=== PATIENT | female | born 1955 | race African-American/Black ===

== ENCOUNTER 2016-06-05 21:24 | Inpatient (IN) | payer BC ==
--- NOTE | ~2016-06-05 | CN ---
Consultation Report [address] [place]. [address] NAME: REY ROSEN : 57 STATUS : ADM IN [facility]#: [id number] AGE: 61 ADM/REG DATE : 06/06/16 MR#: [id number] REPORT SERV DATE: 06/10/16 DICTATED BY: JEFF MULLINS III DATE: 06/10/16 REPORT STATUS : Draft TRANSCRIBED BY: MODL DATE: 06/10/16 DATE OF CONSULTATION: 06/09/2016 REASON FOR CONSULT: 1. Retroperitoneal mass. 2. Recommendation regarding surgical management. HISTORY OF PRESENT ILLNESS: I am asked to see this 61-year-old female in the hospital today for the above reasons. The patient was admitted to the hospital emergently on 06/05/2016 with evidence for pulmonary embolus. The patient complains of a one-week history of chest pain and right flank pain. She describes right back pain, right flank pain, and right upper quadrant abdominal pain. This has been associated with dyspnea. The patient presented to the emergency room and a CT scan of the chest was performed showing evidence for a left pulmonary embolus. However, right retroperitoneal mass was also identified. The patient has no similar symptoms. She has had a low-grade fever. She was tachycardic on presentation to the emergency room. PAST MEDICAL HISTORY: 1. Hypertension. 2. Non-insulin diabetes mellitus. 3. Fatty liver disease. 4. Obesity. MEDICATIONS: 1. Tylenol. 2. Cartia. 3. Insulin. 4. Starlix. 5. Benicar. 6. Januvia. PAST SURGICAL HISTORY: 1. section. 2. Hysterectomy. 3. Laparoscopic cholecystectomy. FAMILY HISTORY: Positive for diabetes, heart disease, and cerebrovascular accident. SOCIAL HISTORY: No history of tobacco or alcohol use. Consultation Report [address] [place]. [address] NAME: REY ROSEN : 57 STATUS : ADM IN [facility]#: [id number] AGE: 61 ADM/REG DATE : 06/06/16 MR#: [id number] REPORT SERV DATE: 06/10/16 DICTATED BY: JEFF MULLINS III DATE: 06/10/16 REPORT STATUS : Draft TRANSCRIBED BY: MODL DATE: 06/10/16 PHYSICAL EXAMINATION: GENERAL: This is a pleasant, somewhat obese female, in no acute distress. She is alert and oriented x3. VITAL SIGNS: Temperature 97.4, blood pressure 109/64, pulse 92. HEENT: Unremarkable. Cranial nerves 2 through 12 were normal. LUNGS: Clear. She has decreased breath sounds at the base of the right lung. CARDIAC: Unremarkable. ABDOMEN: Soft and nontender. EXTREMITIES: Unremarkable. LABORATORY DATA: CT scan of the abdomen and pelvis which I reviewed shows a poorly defined right upper quadrant retroperitoneal mass located posteriorly. This is not a discrete mass. This is associated with a right pleural effusion. Doppler venous ultrasound of the lower extremities is normal. Electrolytes are unremarkable. Glucose is 76. Liver enzymes are normal. White blood cell count 6.7 and hematocrit 30. ASSESSMENT: 1. A 61-year-old female with right upper posterior retroperitoneal mass, unclear etiology. 2. Right pleural effusion, likely related to right upper posterior retroperitoneal mass. 3. Left pulmonary embolus. 4. Diabetes mellitus. 5. Obesity. 6. Hypertension. PLAN: The patient has undergone CT-directed biopsy of this right retroperitoneal mass and pathology is pending. We will await the pathology report and results before making further recommendations. This process appears to be related to the large right pleural effusion which has been drained. We will follow the patient with you. I have discussed this with the patient. Thank you for this consult. [facility]/TULIO Jeff Mullins III, M.D. Consultation Report [address] [address] NAME: REY ROSEN : 57 STATUS : ADM IN [facility]#: [id number] AGE: 61 ADM/REG DATE : 06/06/16 MR#: [id number] REPORT SERV DATE: 06/10/16 DICTATED BY: JEFF MULLINS III DATE: 06/10/16 REPORT STATUS : Draft TRANSCRIBED BY: TULIO DATE: 06/10/16 / [id number] CC: Rosina Vanessa NP
--- NOTE | ~2016-06-05 | HP ---
History And Physical [address] [place]. [address] NAME: REY ROSEN : 57 STATUS : ADM IN [facility]#: [id number] AGE: 61 ADM/REG DATE : 06/06/16 MR#: [id number] REPORT SERV DATE: 06/06/16 DICTATED BY: TOR SORIANO DATE: 06/06/16 REPORT STATUS : Draft TRANSCRIBED BY: MODL DATE: 06/06/16 DATE OF ADMISSION: 06/05/2016 CHIEF COMPLAINT: Chest pain and shortness of breath. HISTORY OF PRESENT ILLNESS: This is a 61-year-old lady with history of hypertension, diabetes, fatty liver disease, presenting with a shortness of breath and chest pain. The patient reports that the patient started noticing a right-sided flank pain, chest pain, and shortness of breath since about Wednesday. The symptoms started off mild, and the patient did go see her PCP, who decided to monitor her and treat her symptomatically. There were plans to get a chest x-ray, but unfortunately the patient became more symptomatic throughout the week with intractable pain and shortness of breath that she decided to come to the ER for further evaluation and care. In the ER, the patient was found to be febrile to 100.5. The patient was also quite tachycardic with heart rate of 124. Rest of the vital signs was stable, and the patient was maintaining adequate oxygen saturations on room air. Initial lab evaluation was unremarkable. ABG was again unremarkable. CT angiogram of the chest was performed, and it showed a left lower lobe PE along with right-sided moderate pleural effusion and possible infiltrates. Internal Medicine consultation was requested for admission of the patient for further evaluation and care. REVIEW OF SYSTEMS: The patient denies any fevers or chills. Also, 14-point review of systems reviewed is negative other than mentioned above. The patient denied any history of DVTs. Also denied family history of DVTs, smoking, recent surgery or injuries, or travels. MEDICATIONS: 1. Tylenol 1000 mg p.o. b.i.d. p.r.n. 2. Vitamin B12 of 1000 mcg IM or subcu every 30 days. 3. Cartia 240 mg p.o. q.a.m. 4. Vitamin D 50,000 units p.o. every two weeks. 5. NovoLog 70/30 seventy units subcu b.i.d. 6. Starlix 120 mg p.o. three times daily. 7. Benicar hydrochlorothiazide 40/25 one tab p.o. q.p.m. 8. Januvia 100 mg p.o. q.p.m. ALLERGIES: NKDA. PAST MEDICAL HISTORY: 1. Hypertension. 2. Rrc-wphuhas-ytofywnhe diabetes type 2. 3. Fatty liver disease. PAST SURGICAL HISTORY: 1. Hysterectomy. 2. C-sections x3. 3. Cholecystectomy. History And Physical [address] [address] NAME: REY ROSEN : 57 STATUS : ADM IN [facility]#: [id number] AGE: 61 ADM/REG DATE : 06/06/16 MR#: [id number] REPORT SERV DATE: 06/06/16 DICTATED BY: TOR SORIANO DATE: 06/06/16 REPORT STATUS : Draft TRANSCRIBED BY: TULIO DATE: 06/06/16 FAMILY HISTORY: 1. Diabetes. 2. Heart diseases. 3. CVA. 4. Cancers. SOCIAL HISTORY: The patient does not smoke, drink alcohol, or use any illicit drugs. The patient lives at home with her son. PHYSICAL EXAMINATION: VITAL SIGNS: Temperature 100.5, blood pressure 135/68, pulse 124, respiratory rate is 20, saturating 95% on room air. GENERAL: The patient is alert and oriented x3 with no focal neurologic deficits. The patient is awake, does not appear to be in acute distress. She is cooperative. NECK: No JVD. No lymphadenopathy. Normal thyroid. CHEST: No midline sternotomy scar and no tenderness to palpation. LUNGS: Actually fairly clear to auscultation bilaterally with normal respiratory effort on room air. CARDIOVASCULAR: The patient is quite tachycardic. Otherwise, no murmurs, rubs, or gallops; and PMI is nondisplaced. ABDOMEN: Soft, nontender with active bowel sounds and no organomegaly. EXTREMITIES: No edema. Normal distal pulses. No calf tenderness. SKIN: Clean, dry, warm, and intact. LABORATORY DATA: Sodium is 136, potassium 3.7 chloride 101, BUN 27, creatinine 1.53, glucose 281 calcium 9.1. White blood cell count is 10.4, hemoglobin 11.2, platelets 551. INR is 1.2. Lactate is 1.6. ABG; pH is 7.47, PCO2 of 32, PO2 of 66, and oxygen saturation of 94.3% on room air. Urinalysis was negative. Flu panel was negative. CTA of the chest revealed a left lower lobe PEs along with right lower lobe and right middle lobe air bronchogram suggesting possible infiltrates. The patient was also found to have a right-sided moderate pleural effusion. ASSESSMENT: This is a 61-year-old lady with history of hypertension, diabetes, fatty liver disease, who is presenting with left pulmonary embolism and right pneumonia. 1. Left lower lobe pulmonary embolism along with right-sided pneumonia and pleural effusion. The pulmonary embolism itself appears to be unprovoked. 2. Hypertension. 3. Zcr-wkkhfwk-bcumncpcu diabetes type 2. 4. Fatty liver disease. PLAN: The plan is to admit the patient under telemetry monitoring. The patient will be given gentle IV fluid resuscitation. The patient will be started on anticoagulation with IV heparin drip as well as p.o. Coumadin. The patient will decide if she wants to continue Coumadin or switch over to NOAC after giving it some thoughts overnight. The patient will also be treated with Rocephin and Zithromax for the potential pneumonia. I will also History And Physical [address] [address] NAME: REY ROSEN : 57 STATUS : ADM IN [facility]#: [id number] AGE: 61 ADM/REG DATE : 06/06/16 MR#: [id number] REPORT SERV DATE: 06/06/16 DICTATED BY: TOR SORIANO DATE: 06/06/16 REPORT STATUS : Draft TRANSCRIBED BY: MODL DATE: 06/06/16 complete infectious workup. The patient has mild renal insufficiency, and I will follow in's and out's and daily electrolytes and renal function, especially since the patient had a CTA performed despite her renal function. Otherwise, for the rest of stable past medical conditions including hypertension, diabetes, fatty liver disease, I will continue home medications. Standard DVT prophylaxis. The patient is full code at this time. [facility] [place] Tor Soriano MD / [id number]
--- NOTE | ~2016-06-05 | DS ---
Discharge Summary [id number] [place]. [address] NAME: REY ROSEN : 57 STATUS : DIS IN PAT#: [id number] AGE: 61 ADM/REG DATE : 06/06/16 MR#: [id number] REPORT SERV DATE: 06/19/16 DICTATED BY: SADI MURPHY DATE: 06/19/16 REPORT STATUS : Draft TRANSCRIBED BY: MODL DATE: 06/19/16 ADMISSION DATE: 06/06/2016 DISCHARGE DATE: 06/19/2016 DISCHARGE DIAGNOSES: Include: 1. Retroperitoneal abscess. 2. Acute pulmonary embolus. 3. Uncontrolled diabetes type 2 with hemoglobin A1c of 13.1. 4. Right lower lobe pneumonia present on admission, resolving. 5. Right pleural effusion, resolving. 6. Chronic kidney disease, stage III with most recent creatinine 1.19. 7. History of hypertension. 8. History of iron deficiency anemia. DISCHARGE MEDICATIONS: As follows: Augmentin 875 mg p.o. twice a day for one more day; Januvia 100 mg daily; vitamin B12 1000 mcg every 30 days subcu; diltiazem ER 240 mg daily; NovoLog 70/30 mix insulin 70 units subcutaneously twice a day; Benicar hydrochlorothiazide 40/25, but half a tablet daily; Starlix 120 mg p.o. three times a day; vitamin D 83523 units every 14 days; Tylenol 1000 mg twice a day p.r.n.; and Eliquis 10 mg twice a day for seven days and then 5 mg twice a day thereafter, prescription written for six months. HISTORY OF PRESENT ILLNESS: A very pleasant, 61-year-old female presented with chest pain, shortness of breath. Please see the initial H and P of Dr. Tor Soriano as patient admitted to the Hospitalist Service for further evaluation and treatment. Please also see the interim discharge summary of Leah Moreno, nurse practitioner as this discharge summary will further cover the dates of 06/16/2016 until 06/19/2016. CONSULTANTS DURING THIS ADMISSION: Include General Surgery, Dr. Mojica. CONTINUATION OF HOSPITAL COURSE: I began seeing the patient on 06/16/2016 General Surgery, having determined they were not going to perform any surgical intervention during this admission. I had recommended changing her to p.o. antibiotics and simply following up with an outpatient visit, and further CT scan to follow up with this retroperitoneal abscess. The patient's Coumadin was resumed along with heparin drip. INR was 1.1. Blood sugars written review were reasonably controlled as well on her current insulin. The plan initially was to discharge patient home when her INR reached therapeutic range of 2 and continued on heparin drip. She tolerated the transition to p.o. Augmentin well, has been somewhat difficult to anticoagulate as her INR has been stubborn, and despite large doses of Coumadin 10 mg to 12.5 mg and so forth, her INR did not rise so Case Management explored the possibility of a financial feasibility for a newer oral anticoagulant. Prescription was written for Eliquis which the patient agreed upon so she was able to be discharged home on 06/19/2016 with a plan to follow up with her primary care, in approximately three weeks. She will follow up with Dr. Mojica in two weeks, and her heparin drip was discontinued as she started on her Eliquis therapy receiving her first dose here in the hospital. The patient was in agreement with this plan going forward. Questions were answered at bedside in full, and please note greater than 30 minutes was spent on this discharge for medication Discharge Summary [address] [place]. [address] NAME: REY ROSEN : 57 STATUS : DIS IN [facility]#: [id number] AGE: 61 ADM/REG DATE : 06/06/16 MR#: [id number] REPORT SERV DATE: 06/19/16 DICTATED BY: SADI MURPHY DATE: 06/19/16 REPORT STATUS : Draft TRANSCRIBED BY: MODL DATE: 06/19/16 teaching, followup planning, and further disposition. [facility] [place] Sadi Murphy NP / [id number] CC: MD Janette Garcia II
--- NOTE | ~2016-06-05 | IDS ---
Interim Discharge Summary [facility] [address] [place]. [address] NAME: REY ROSEN : 57 STATUS : ADM IN [facility]#: [id number] AGE: 61 ADM/REG DATE : 06/06/16 MR#: [id number] REPORT SERV DATE: 06/14/16 DICTATED BY: DATE: REPORT STATUS : Draft TRANSCRIBED BY: MODL DATE: 06/14/16 ADMISSION DATE: 06/06/2016 DISCHARGE DATE: DIAGNOSES: Current interim discharge diagnoses list includes: 1. Retroperitoneal mass/abscess. 2. Left pulmonary emboli. 3. Diabetes mellitus, type 2, uncontrolled. 4. Right pleural effusion. 5. Right lower lobe pneumonia. 6. Hypertension. 7. Iron-deficient anemia. HISTORY OF PRESENT ILLNESS: This is a 61-year-old black female with a history of hypertension, diabetes, who presented with shortness of breath and chest pain x1 week. Please see admitting H and P by Tor Soriano on 06/05/2016. CONSULTS: During this admission include Dr. Brad Mojica, surgeon. PROCEDURES AND IMAGING: During this admission, the patient has had a CTA of the chest, which showed a few small emboli on the left lower lobe in the arterial branches and subsegmental atelectasis with areas of consolidation in the right lower lobe and right middle lobe. This was followed up with a chest x-ray that showed interval development of opacification in the right lung base consistent with pleural effusion, atelectasis, or infiltrate. On 06/07/2016, chest x-ray showed increased opacification of the right chest, greater than one- half of the right chest consistent with effusion. The patient had a thoracentesis done on 06/09/2016. The patient had a CT of the abdomen and pelvis, which showed an irregular mass- like density involving the superior aspect of the retroperitoneum invading the perinephric fat and involving the right posterior sulcus, which was felt to represent a developing abscess. The patient's most recent CT of the chest showed that her x-ray had improved with decrease in atelectasis and the patient had a smaller pleural effusion than prior to the thoracentesis. During the thoracentesis, over 100 mL of fluid was obtained and submitted for culture and sensitivity and cytology. Patient's cultures came back negative. The patient had a followup CT of the chest on 06/13/2016, which is already been discussed. Her CT of the abdomen on 06/13 showed persistent retroperitoneal mass consistent with abscess. The patient had previously been scheduled to go down by Interventional Radiology, but this procedure was canceled on Wednesday due to question of ability to be able to drain it per Interventional Radiology. The patient continues to be on Zosyn. The patient's T-max has been 98.8 in the last 24 hours. The patient denies any pain or shortness of breath. The patient's right lower lobe pneumonia has had a full course of treatment and has resolved. The patient continues to have a small right pleural effusion, which is felt to be related to the retroperitoneal abscess. The patient's diabetes mellitus has been treated with 70/30 insulin as well as sliding scale. Patient's admission A1c was 13.1. At this time, fingerstick blood sugars have been between 1 to 200s. The patient's current 70/30 insulin dosage has been increased to 74 units in the morning and 70 units in the evening along with sliding scale insulin level 2 with meals. The patient's hypertension has been well Interim Discharge Summary [address] [address] NAME: REY ROSEN : 57 STATUS : ADM IN [facility]#: [id number] AGE: 61 ADM/REG DATE : 06/06/16 MR#: [id number] REPORT SERV DATE: 06/14/16 DICTATED BY: DATE: REPORT STATUS : Draft TRANSCRIBED BY: MODL DATE: 06/14/16 controlled with olmesartan and diltiazem. HOSPITAL COURSE: The patient was initially seen by Pranav Cole until 06/08/2016, was then seen by Dr. Austin on 06/09, followed by Antonietta Cheng from 06/10 to 06/12. The patient has been followed by myself, 06/13, 06/14, and 06/15. The patient denies any complaints of pain, shortness of breath, chills or sweats and is able to ambulate without difficulty. The patient continues to have decreased breath sounds in the right base. CURRENT LABORATORIES: Her current lab work; sodium is 141, potassium is 4.2, chloride is 106, BUN is 22, creatinine is 1.26. GFR is 54. Glucose is 115. Hemoglobin is 10.6, hematocrit 32.5, and platelets are 698. [facility]/MODL Leah Moreno NP / [id number] CC: Abel Samayoa MD
[~2016-06-05 21:24] MED LIST: BENICAR HCT1 TA2 PO; CALTRA600D PO; CARTIA XT120 MG/24 PO; COVARYX HS PO; JANUVIA100 MG PO; JANUVIA50 PO; MULTIVIT/MIN PO; NOVOLOGMIX SC; STARLIX120 PO; VITA D2 PO; VITAMIN B-121000 MC1 SL; ZESTRIL20 MG PO
[2016-06-05 22:27] LABS: ALLENS TEST Pos; BE (BASE EXCESS) -0.8 MEQ/L (0 +/- 2.5); CARBOXYHEMOGLOBIN 1.3 % (0-3); HCO3 (ACTUAL BICARBONATE) 22.3 MEQ/L (23-27); HEMOBLOGIN CONTENT 11.7 G/DL (12-16); INSTRUMENT SERIAL # 8087; METHEMOGLOBIN 0.2 % (0-3); O2 CONTENT 15.3 VOL% (18-24); OPERATOR ID 17589; PCO2 (CO2 TENSION) 32 MMHG (35-45); PO2 (O2 TENSION) 66 MMHG (79-93); SAMPLE Arterial; pH 7.47 (7.37-7.43)
[2016-06-05 22:37] LABS: ASCORBIC ACID (UR NOT ORDER) NEG (NEG); BILIRUBIN, URINE NEGATIVE (NEG); ER URINALYSIS TAT 0 Hrs 09 Mins; KETONE, URINE NEGATIVE (NEG); LEUKOCYTE ESTERASE(NOT OR NEG (NEG); NITRITE (URINE) NEG (NEG); WBC (NOT ORDERED) (RFLEX) 2 (0-5)
[2016-06-05] MEDS ORDERED: JANUVIA100 MG PO (22:37)
[2016-06-05] MEDS ORDERED: STARLIX120 PO (22:38)
[2016-06-05] MEDS ORDERED: BENICAR HCT1 TA2 PO (22:38)
[2016-06-05] MEDS ORDERED: VITD PO (22:38)
[2016-06-05] MEDS ORDERED: NOVOPENMIX SC (22:38)
[2016-06-05] MEDS ORDERED: CARTIA XT240 MG/24 PO (22:39)
[2016-06-05] MEDS ORDERED: ACET500CAP PO (22:39)
[2016-06-05] MEDS ORDERED: B121000P IM/SC (22:39)
[2016-06-05 23:27] LABS: BASOPHILS 0.2 %; BASOPHILS ABSOLUTE 0.02 10/3/uL (0.0-0.16); EOSINOPHILS 0.6 %; EOSINOPHILS ABSOLUTE 0.06 10/3/uL (0.0-0.53); ER CBC TAT 0 Hrs 10 Mins; HEMOGLOBIN 11.2 g/dL (12.0-16.0); IMMATURE GRANULOCYTES 0.2 %; IMMATURE GRANULOCYTES ABSOLUTE 0.02 10/3/uL (0.0-0.11); LYMPHOCYTES 11.6 %; MEAN CORPUS HGB CONC 31.9 g/dL (32.0-36.0); MEAN CORPUSCULAR HEMOGLOB 25.1 pg (26.0-34.0); MEAN CORPUSCULAR VOLUME 78.5 fL (80-100); MEAN PLATELET VOLUME 9.4 fL (9.2-13.0); MONOCYTES 9.6 %; NEUTROPHILS 77.8 %; NEUTROPHILS ABSOLUTE 8.07 10/3/uL (2.02-8.40); RBC DISTRIBUTION WIDTH 13.6 % (12.0-16.0); RED CELL COUNT 4.47 10/6/uL (4.0-5.6); WHITE BLOOD CELLS 10.4 10/3/uL (4.5-10.5)
[2016-06-05 23:29] LABS: HEMATOCRIT 35.1 % (36.0-48.0); MANUAL DIFF NO %; PLATELET COUNT 551 10/3/uL (150-400)
[2016-06-05 23:34] LABS: INTERNATIONAL NORMAL RATI 1.2 UNITS (-); PARTIAL THROMBO TIME 32.8 SEC (22.5-37.2); PROTIME (NOT ORD) 14.6 SEC (12.0-14.5)
[2016-06-05 23:38] LABS: ALBUMIN 2.8 G/DL (3.5-5.0); BUN (BLOOD UREA NITROGEN) 27 MG/DL (6-23); CALCIUM, SERUM 9.1 MG/DL (8.5-10.4); CHLORIDE, SERUM 101 MMOL/L (96-112); CO2 (CARBON DIOXIDE) 26 MMOL/L (24-34); CREATININE 1.53 MG/DL (0.55-1.02); GFR AFRICAN AMERICAN 42 ML/MIN (>=60); GFR NON AFRICAN AMERICAN 37 ML/MIN (>=60); POTASSIUM, SERUM 3.7 MMOL/L (3.5-5.3); SGOT(AST) 9 U/L (5-40); SGPT(ALT) 18 U/L (5-65); SODIUM, SERUM 136 MMOL/L (135-148); TOTAL BILIRUBIN 0.3 MG/DL (0-1.2); TOTAL PROTEIN 7.9 G/DL (6.0-8.5)
[2016-06-05 23:39] LABS: A/G RATIO 0.5 (0.7-1.9); ALKALINE PHOSPHATASE 94 U/L (45-117); GLOBULIN 5.1 G/DL (2.5-4.1); GLUCOSE, SERUM 281 MG/DL (60-99)
[2016-06-05 23:40] LABS: LACTATE 1.6 MMOL/L (0.3-2.4)
[2016-06-06 00:07] LABS: INFLUENZA A SCREEN NEGATIVE (NEGATIVE); INFLUENZA B SCREEN NEGATIVE (NEGATIVE)
[2016-06-06 01:08] LABS: PROCALCITONIN 0.26 ng/mL (<0.5)
[2016-06-06 05:49] LABS: INTERNATIONAL NORMAL RATI 1.2 UNITS (-); PARTIAL THROMBO TIME 54.2 SEC (22.5-37.2); PROTIME (NOT ORD) 15.1 SEC (12.0-14.5)
[2016-06-06 05:58] LABS: BASOPHILS 0.1 %; BASOPHILS ABSOLUTE 0.01 10/3/uL (0.0-0.16); EOSINOPHILS 1.2 %; EOSINOPHILS ABSOLUTE 0.11 10/3/uL (0.0-0.53); IMMATURE GRANULOCYTES 0.4 %; IMMATURE GRANULOCYTES ABSOLUTE 0.04 10/3/uL (0.0-0.11); LYMPHOCYTES 16.6 %; LYMPHOCYTES ABSOLUTE 1.52 10/3/uL (0.67-4.30); MEAN CORPUS HGB CONC 32.9 g/dL (32.0-36.0); MEAN CORPUSCULAR VOLUME 79.2 fL (80-100); MEAN PLATELET VOLUME 9.4 fL (9.2-13.0); MONOCYTES 9.4 %; MONOCYTES ABSOLUTE 0.86 10/3/uL (0.21-1.20); NEUTROPHILS 72.3 %; NEUTROPHILS ABSOLUTE 6.64 10/3/uL (2.02-8.40); PLATELET COUNT 530 10/3/uL (150-400); RBC DISTRIBUTION WIDTH 13.6 % (12.0-16.0); RED CELL COUNT 3.84 10/6/uL (4.0-5.6); WHITE BLOOD CELLS 9.2 10/3/uL (4.5-10.5)
[2016-06-06 05:59] LABS: HEMATOCRIT 30.4 % (36.0-48.0); MANUAL DIFF NO %
[2016-06-06 06:04] LABS: CALCIUM, SERUM 8.5 MG/DL (8.5-10.4); CHLORIDE, SERUM 103 MMOL/L (96-112); CO2 (CARBON DIOXIDE) 25 MMOL/L (24-34); CREATININE 1.33 MG/DL (0.55-1.02); GFR AFRICAN AMERICAN 50 ML/MIN (>=60); GFR NON AFRICAN AMERICAN 43 ML/MIN (>=60); GLUCOSE, SERUM 282 MG/DL (60-99); POTASSIUM, SERUM 3.7 MMOL/L (3.5-5.3); SODIUM, SERUM 138 MMOL/L (135-148); TROPONIN I <0.02 NG/ML (<0.05)
[2016-06-06 06:05] LABS: BUN (BLOOD UREA NITROGEN) 22 MG/DL (6-23)
[2016-06-07 07:19] LABS: BASOPHILS 0.1 %; BASOPHILS ABSOLUTE 0.01 10/3/uL (0.0-0.16); EOSINOPHILS 3.2 %; EOSINOPHILS ABSOLUTE 0.22 10/3/uL (0.0-0.53); HEMATOCRIT 31.6 % (36.0-48.0); HEMOGLOBIN 10.4 g/dL (12.0-16.0); IMMATURE GRANULOCYTES 0.4 %; IMMATURE GRANULOCYTES ABSOLUTE 0.03 10/3/uL (0.0-0.11); LYMPHOCYTES 22.4 %; LYMPHOCYTES ABSOLUTE 1.52 10/3/uL (0.67-4.30); MEAN CORPUS HGB CONC 32.9 g/dL (32.0-36.0); MEAN CORPUSCULAR HEMOGLOB 26.3 pg (26.0-34.0); MEAN CORPUSCULAR VOLUME 79.8 fL (80-100); MEAN PLATELET VOLUME 9.1 fL (9.2-13.0); MONOCYTES 10.3 %; NEUTROPHILS 63.6 %; NEUTROPHILS ABSOLUTE 4.31 10/3/uL (2.02-8.40); PLATELET COUNT 555 10/3/uL (150-400); RBC DISTRIBUTION WIDTH 13.6 % (12.0-16.0); RED CELL COUNT 3.96 10/6/uL (4.0-5.6); WHITE BLOOD CELLS 6.8 10/3/uL (4.5-10.5)
[2016-06-07 07:20] LABS: MANUAL DIFF NO %
[2016-06-07 07:23] LABS: INTERNATIONAL NORMAL RATI 1.2 UNITS (-); PROTIME (NOT ORD) 14.9 SEC (12.0-14.5)
[2016-06-07 07:32] LABS: ALBUMIN 2.3 G/DL (3.5-5.0); BUN (BLOOD UREA NITROGEN) 16 MG/DL (6-23); CALCIUM, SERUM 9.1 MG/DL (8.5-10.4); CHLORIDE, SERUM 103 MMOL/L (96-112); CO2 (CARBON DIOXIDE) 26 MMOL/L (24-34); CREATININE 1.03 MG/DL (0.55-1.02); GFR AFRICAN AMERICAN 68 ML/MIN (>=60); GFR NON AFRICAN AMERICAN 59 ML/MIN (>=60); GLUCOSE, SERUM 118 MG/DL (60-99); PHOSPHORUS, SERUM 5.5 MG/DL (2.5-4.5); SODIUM, SERUM 139 MMOL/L (135-148)
[2016-06-07 12:29] LABS: RETICULOCYTE COUNT ABSOLUTE 41.8 10/3/uL (20.2-119.8)
[2016-06-07 13:12] LABS: FOLATE 17.7 NG/ML (>5.2)
[2016-06-08 02:16] LABS: BASOPHILS 0.3 %; BASOPHILS ABSOLUTE 0.02 10/3/uL (0.0-0.16); EOSINOPHILS 3.7 %; EOSINOPHILS ABSOLUTE 0.28 10/3/uL (0.0-0.53); HEMATOCRIT 31.5 % (36.0-48.0); HEMOGLOBIN 10.2 g/dL (12.0-16.0); IMMATURE GRANULOCYTES 0.4 %; IMMATURE GRANULOCYTES ABSOLUTE 0.03 10/3/uL (0.0-0.11); LYMPHOCYTES 27.1 %; LYMPHOCYTES ABSOLUTE 2.07 10/3/uL (0.67-4.30); MEAN CORPUS HGB CONC 32.4 g/dL (32.0-36.0); MEAN CORPUSCULAR HEMOGLOB 25.4 pg (26.0-34.0); MEAN CORPUSCULAR VOLUME 78.6 fL (80-100); MEAN PLATELET VOLUME 9.5 fL (9.2-13.0); MONOCYTES 7.9 %; NEUTROPHILS 60.6 %; NEUTROPHILS ABSOLUTE 4.64 10/3/uL (2.02-8.40); PLATELET COUNT 590 10/3/uL (150-400); RBC DISTRIBUTION WIDTH 13.6 % (12.0-16.0); RED CELL COUNT 4.01 10/6/uL (4.0-5.6); WHITE BLOOD CELLS 7.6 10/3/uL (4.5-10.5)
[2016-06-08 02:18] LABS: MANUAL DIFF NO %
[2016-06-08 02:19] LABS: INTERNATIONAL NORMAL RATI 1.1 UNITS (-); PROTIME (NOT ORD) 14.5 SEC (12.0-14.5)
[2016-06-08 02:20] LABS: PARTIAL THROMBO TIME 80.6 SEC (22.5-37.2)
[2016-06-08 02:29] LABS: ALBUMIN 2.6 G/DL (3.5-5.0); ALKALINE PHOSPHATASE 95 U/L (45-117); CALCIUM, SERUM 9.1 MG/DL (8.5-10.4); CHLORIDE, SERUM 102 MMOL/L (96-112); CO2 (CARBON DIOXIDE) 27 MMOL/L (24-34); CREATININE 1.17 MG/DL (0.55-1.02); DIRECT BILIRUBIN 0.1 MG/DL (0.0-0.4); GFR AFRICAN AMERICAN 59 ML/MIN (>=60); GFR NON AFRICAN AMERICAN 51 ML/MIN (>=60); POTASSIUM, SERUM 4.1 MMOL/L (3.5-5.3); SGOT(AST) 10 U/L (5-40); SGPT(ALT) 20 U/L (5-65); SODIUM, SERUM 141 MMOL/L (135-148); TOTAL BILIRUBIN 0.1 MG/DL (0-1.2); TOTAL PROTEIN 7.8 G/DL (6.0-8.5)
[2016-06-08 02:31] LABS: BUN (BLOOD UREA NITROGEN) 20 MG/DL (6-23); GLUCOSE, SERUM 90 MG/DL (60-99)
[2016-06-09 03:11] LABS: BASOPHILS 0.2 %; BASOPHILS ABSOLUTE 0.02 10/3/uL (0.0-0.16); EOSINOPHILS 3.5 %; EOSINOPHILS ABSOLUTE 0.29 10/3/uL (0.0-0.53); HEMATOCRIT 29.6 % (36.0-48.0); HEMOGLOBIN 9.6 g/dL (12.0-16.0); IMMATURE GRANULOCYTES 0.5 %; IMMATURE GRANULOCYTES ABSOLUTE 0.04 10/3/uL (0.0-0.11); INTERNATIONAL NORMAL RATI 1.2 UNITS (-); LYMPHOCYTES 18.8 %; LYMPHOCYTES ABSOLUTE 1.55 10/3/uL (0.67-4.30); MEAN CORPUS HGB CONC 32.4 g/dL (32.0-36.0); MEAN CORPUSCULAR HEMOGLOB 25.7 pg (26.0-34.0); MEAN CORPUSCULAR VOLUME 79.4 fL (80-100); MEAN PLATELET VOLUME 9.4 fL (9.2-13.0); MONOCYTES 9.1 %; MONOCYTES ABSOLUTE 0.75 10/3/uL (0.21-1.20); NEUTROPHILS 67.9 %; NEUTROPHILS ABSOLUTE 5.59 10/3/uL (2.02-8.40); PLATELET COUNT 574 10/3/uL (150-400); PROTIME (NOT ORD) 14.6 SEC (12.0-14.5); RBC DISTRIBUTION WIDTH 13.7 % (12.0-16.0); RED CELL COUNT 3.73 10/6/uL (4.0-5.6); WHITE BLOOD CELLS 8.2 10/3/uL (4.5-10.5)
[2016-06-09 03:12] LABS: PARTIAL THROMBO TIME 109.7 SEC (22.5-37.2)
[2016-06-09 03:13] LABS: MANUAL DIFF NO %
[2016-06-09 03:15] LABS: ALBUMIN 2.4 G/DL (3.5-5.0); BUN (BLOOD UREA NITROGEN) 23 MG/DL (6-23); C-REACTIVE PROTEIN 74.9 MG/L (<8.0); CALCIUM, SERUM 8.6 MG/DL (8.5-10.4); CHLORIDE, SERUM 102 MMOL/L (96-112); CO2 (CARBON DIOXIDE) 26 MMOL/L (24-34); CREATININE 1.16 MG/DL (0.55-1.02); GFR AFRICAN AMERICAN 59 ML/MIN (>=60); GFR NON AFRICAN AMERICAN 51 ML/MIN (>=60); GLUCOSE, SERUM 105 MG/DL (60-99); PHOSPHORUS, SERUM 4.8 MG/DL (2.5-4.5); SODIUM, SERUM 138 MMOL/L (135-148)
[2016-06-09 03:54] LABS: SED RATE 113 MM/HR (0-20)
[2016-06-09 11:49] LABS: GLUCOSE BODY FL (NOT ORD) 98 MG/DL; LDH BODY FLUID (NOT ORD) 134 U/L; PROTEIN BODY FLUID 4.9 G/DL
[2016-06-09 15:09] LABS: T PROTEIN (ELECT)(NOT OR 6.4 G/DL (6.0-8.5)
[2016-06-10 05:12] LABS: INTERNATIONAL NORMAL RATI 1.2 UNITS (-); PROTIME (NOT ORD) 14.9 SEC (12.0-14.5)
[2016-06-10 05:13] LABS: PARTIAL THROMBO TIME 59.3 SEC (22.5-37.2)
[2016-06-10 05:17] LABS: BUN (BLOOD UREA NITROGEN) 21 MG/DL (6-23); CHLORIDE, SERUM 103 MMOL/L (96-112); CO2 (CARBON DIOXIDE) 25 MMOL/L (24-34); CREATININE 1.08 MG/DL (0.55-1.02); GFR AFRICAN AMERICAN 65 ML/MIN (>=60); GFR NON AFRICAN AMERICAN 56 ML/MIN (>=60); POTASSIUM, SERUM 4.1 MMOL/L (3.5-5.3); SODIUM, SERUM 140 MMOL/L (135-148)
[2016-06-10 05:21] LABS: GLUCOSE, SERUM 76 MG/DL (60-99)
[2016-06-10 05:22] LABS: BASOPHILS 0.3 %; BASOPHILS ABSOLUTE 0.02 10/3/uL (0.0-0.16); EOSINOPHILS ABSOLUTE 0.27 10/3/uL (0.0-0.53); HEMATOCRIT 30.9 % (36.0-48.0); IMMATURE GRANULOCYTES 0.6 %; IMMATURE GRANULOCYTES ABSOLUTE 0.04 10/3/uL (0.0-0.11); LYMPHOCYTES 23.4 %; LYMPHOCYTES ABSOLUTE 1.56 10/3/uL (0.67-4.30); MEAN CORPUS HGB CONC 32.4 g/dL (32.0-36.0); MEAN CORPUSCULAR VOLUME 80.5 fL (80-100); MEAN PLATELET VOLUME 9.2 fL (9.2-13.0); MONOCYTES 8.7 %; MONOCYTES ABSOLUTE 0.58 10/3/uL (0.21-1.20); NEUTROPHILS ABSOLUTE 4.21 10/3/uL (2.02-8.40); PLATELET COUNT 624 10/3/uL (150-400); RED CELL COUNT 3.84 10/6/uL (4.0-5.6); WHITE BLOOD CELLS 6.7 10/3/uL (4.5-10.5)
[2016-06-10 05:24] LABS: MANUAL DIFF NO %
[2016-06-10 06:50] LABS: BD FL SOURCE (NOT ORD) THORACENTESIS
[2016-06-10 12:00] LABS: A/G 0.78 RATIO (0.9-2.10); ALB RELATIVE % 43.7 % (60.0-89.0); ALPHA 1 (ELECTRO) 0.37 GM/DL (0.1-0.4); ALPHA 1 RELAT % (NOT ORD) 5.8 % (1.0-4.0); ALPHA 2 (ELECTRO) 1.18 GM/DL (0.5-1.10); ALPHA 2 RELAT % 18.5 % (4.5-26.0); BETA GLOBULIN (SPE) 0.88 GM/DL (0.60-1.30); BETA RELATIVE % 13.8 % (9.0-22.0); GAMMA GLOBULIN (SPE) 1.16 G/DL (0.70-1.60); GAMMA RELAT % 18.2 % (6.0-22.0)
[2016-06-11 07:39] LABS: BASOPHILS 0.2 %; BASOPHILS ABSOLUTE 0.01 10/3/uL (0.0-0.16); EOSINOPHILS 3.5 %; EOSINOPHILS ABSOLUTE 0.22 10/3/uL (0.0-0.53); HEMATOCRIT 30.9 % (36.0-48.0); HEMOGLOBIN 9.9 g/dL (12.0-16.0); IMMATURE GRANULOCYTES 0.5 %; IMMATURE GRANULOCYTES ABSOLUTE 0.03 10/3/uL (0.0-0.11); LYMPHOCYTES 24.3 %; LYMPHOCYTES ABSOLUTE 1.54 10/3/uL (0.67-4.30); MEAN CORPUSCULAR HEMOGLOB 25.9 pg (26.0-34.0); MEAN CORPUSCULAR VOLUME 80.9 fL (80-100); MEAN PLATELET VOLUME 8.9 fL (9.2-13.0); MONOCYTES 7.7 %; MONOCYTES ABSOLUTE 0.49 10/3/uL (0.21-1.20); NEUTROPHILS 63.8 %; NEUTROPHILS ABSOLUTE 4.05 10/3/uL (2.02-8.40); PLATELET COUNT 666 10/3/uL (150-400); RBC DISTRIBUTION WIDTH 13.8 % (12.0-16.0); RED CELL COUNT 3.82 10/6/uL (4.0-5.6); WHITE BLOOD CELLS 6.3 10/3/uL (4.5-10.5)
[2016-06-11 07:41] LABS: MANUAL DIFF NO %
[2016-06-11 07:42] LABS: INTERNATIONAL NORMAL RATI 1.1 UNITS (-); PROTIME (NOT ORD) 14.5 SEC (12.0-14.5)
[2016-06-11 07:48] LABS: BUN (BLOOD UREA NITROGEN) 20 MG/DL (6-23); CALCIUM, SERUM 8.9 MG/DL (8.5-10.4); CHLORIDE, SERUM 103 MMOL/L (96-112); CO2 (CARBON DIOXIDE) 27 MMOL/L (24-34); CREATININE 1.18 MG/DL (0.55-1.02); GFR AFRICAN AMERICAN 58 ML/MIN (>=60); GFR NON AFRICAN AMERICAN 50 ML/MIN (>=60); GLUCOSE, SERUM 98 MG/DL (60-99); POTASSIUM, SERUM 4.2 MMOL/L (3.5-5.3); SODIUM, SERUM 142 MMOL/L (135-148)
[2016-06-11 08:01] LABS: PARTIAL THROMBO TIME > 150.0 SEC (22.5-37.2)
[2016-06-12 05:13] LABS: INTERNATIONAL NORMAL RATI 1.1 UNITS (-); PROTIME (NOT ORD) 14.2 SEC (12.0-14.5)
[2016-06-13 06:36] LABS: BUN (BLOOD UREA NITROGEN) 20 MG/DL (6-23); CALCIUM, SERUM 8.8 MG/DL (8.5-10.4); CHLORIDE, SERUM 105 MMOL/L (96-112); CO2 (CARBON DIOXIDE) 24 MMOL/L (24-34); CREATININE 1.19 MG/DL (0.55-1.02); GFR AFRICAN AMERICAN 57 ML/MIN (>=60); GFR NON AFRICAN AMERICAN 50 ML/MIN (>=60); GLUCOSE, SERUM 112 MG/DL (60-99); SODIUM, SERUM 140 MMOL/L (135-148)
[2016-06-13 06:38] LABS: POTASSIUM, SERUM 4.8 MMOL/L (3.5-5.3)
[2016-06-13 07:19] LABS: BASOPHILS 0.1 %; BASOPHILS ABSOLUTE 0.01 10/3/uL (0.0-0.16); EOSINOPHILS 4.3 %; HEMATOCRIT 32.5 % (36.0-48.0); HEMOGLOBIN 10.4 g/dL (12.0-16.0); IMMATURE GRANULOCYTES 0.7 %; IMMATURE GRANULOCYTES ABSOLUTE 0.05 10/3/uL (0.0-0.11); LYMPHOCYTES ABSOLUTE 1.69 10/3/uL (0.67-4.30); MEAN CORPUSCULAR HEMOGLOB 25.4 pg (26.0-34.0); MEAN CORPUSCULAR VOLUME 79.5 fL (80-100); MEAN PLATELET VOLUME 9.3 fL (9.2-13.0); MONOCYTES 11.5 %; MONOCYTES ABSOLUTE 0.81 10/3/uL (0.21-1.20); NEUTROPHILS 59.4 %; NEUTROPHILS ABSOLUTE 4.17 10/3/uL (2.02-8.40); PLATELET COUNT 659 10/3/uL (150-400); RED CELL COUNT 4.09 10/6/uL (4.0-5.6)
[2016-06-13 07:24] LABS: MANUAL DIFF NO %
[2016-06-14 07:01] LABS: BASOPHILS 0.3 %; BASOPHILS ABSOLUTE 0.02 10/3/uL (0.0-0.16); EOSINOPHILS 4.7 %; EOSINOPHILS ABSOLUTE 0.37 10/3/uL (0.0-0.53); HEMATOCRIT 33.2 % (36.0-48.0); HEMOGLOBIN 10.6 g/dL (12.0-16.0); IMMATURE GRANULOCYTES 0.6 %; IMMATURE GRANULOCYTES ABSOLUTE 0.05 10/3/uL (0.0-0.11); LYMPHOCYTES 25.9 %; LYMPHOCYTES ABSOLUTE 2.05 10/3/uL (0.67-4.30); MEAN CORPUS HGB CONC 31.9 g/dL (32.0-36.0); MEAN CORPUSCULAR HEMOGLOB 25.7 pg (26.0-34.0); MEAN CORPUSCULAR VOLUME 80.6 fL (80-100); MEAN PLATELET VOLUME 8.9 fL (9.2-13.0); MONOCYTES 7.1 %; MONOCYTES ABSOLUTE 0.56 10/3/uL (0.21-1.20); NEUTROPHILS 61.4 %; NEUTROPHILS ABSOLUTE 4.87 10/3/uL (2.02-8.40); PLATELET COUNT 698 10/3/uL (150-400); RBC DISTRIBUTION WIDTH 14.2 % (12.0-16.0); RED CELL COUNT 4.12 10/6/uL (4.0-5.6); WHITE BLOOD CELLS 7.9 10/3/uL (4.5-10.5)
[2016-06-14 07:02] LABS: MANUAL DIFF NO %
[2016-06-14 07:04] LABS: BUN (BLOOD UREA NITROGEN) 22 MG/DL (6-23); CALCIUM, SERUM 9.3 MG/DL (8.5-10.4); CHLORIDE, SERUM 106 MMOL/L (96-112); CO2 (CARBON DIOXIDE) 26 MMOL/L (24-34); CREATININE 1.26 MG/DL (0.55-1.02); GFR AFRICAN AMERICAN 54 ML/MIN (>=60); GFR NON AFRICAN AMERICAN 46 ML/MIN (>=60); GLUCOSE, SERUM 115 MG/DL (60-99); POTASSIUM, SERUM 4.2 MMOL/L (3.5-5.3); SODIUM, SERUM 141 MMOL/L (135-148)
[2016-06-15 04:18] LABS: CALCIUM, SERUM 9.1 MG/DL (8.5-10.4); CHLORIDE, SERUM 108 MMOL/L (96-112); CO2 (CARBON DIOXIDE) 24 MMOL/L (24-34); GFR AFRICAN AMERICAN 47 ML/MIN (>=60); GFR NON AFRICAN AMERICAN 41 ML/MIN (>=60); SODIUM, SERUM 142 MMOL/L (135-148)
[2016-06-15 04:20] LABS: BUN (BLOOD UREA NITROGEN) 26 MG/DL (6-23); GLUCOSE, SERUM 71 MG/DL (60-99)
[2016-06-15 04:40] LABS: BASOPHILS 0.1 %; BASOPHILS ABSOLUTE 0.01 10/3/uL (0.0-0.16); EOSINOPHILS 4.4 %; EOSINOPHILS ABSOLUTE 0.31 10/3/uL (0.0-0.53); HEMATOCRIT 32.2 % (36.0-48.0); HEMOGLOBIN 10.5 g/dL (12.0-16.0); IMMATURE GRANULOCYTES 0.7 %; IMMATURE GRANULOCYTES ABSOLUTE 0.05 10/3/uL (0.0-0.11); LYMPHOCYTES 25.8 %; LYMPHOCYTES ABSOLUTE 1.82 10/3/uL (0.67-4.30); MEAN CORPUS HGB CONC 32.6 g/dL (32.0-36.0); MEAN CORPUSCULAR HEMOGLOB 26.3 pg (26.0-34.0); MEAN CORPUSCULAR VOLUME 80.5 fL (80-100); MEAN PLATELET VOLUME 8.9 fL (9.2-13.0); MONOCYTES 8.5 %; NEUTROPHILS 60.5 %; NEUTROPHILS ABSOLUTE 4.26 10/3/uL (2.02-8.40); PLATELET COUNT 680 10/3/uL (150-400); RBC DISTRIBUTION WIDTH 14.3 % (12.0-16.0); WHITE BLOOD CELLS 7.1 10/3/uL (4.5-10.5)
[2016-06-15 04:49] LABS: MANUAL DIFF NO %
[2016-06-16 02:10] LABS: INTERNATIONAL NORMAL RATI 1.1 UNITS (-); PROTIME (NOT ORD) 13.8 SEC (12.0-14.5)
[2016-06-17 03:23] LABS: HEMATOCRIT 33.8 % (36.0-48.0); HEMOGLOBIN 10.9 g/dL (12.0-16.0); MANUAL DIFF YES %; MEAN CORPUS HGB CONC 32.2 g/dL (32.0-36.0); MEAN CORPUSCULAR HEMOGLOB 26.5 pg (26.0-34.0); MEAN PLATELET VOLUME 8.9 fL (9.2-13.0); PLATELET COUNT 692 10/3/uL (150-400); RBC DISTRIBUTION WIDTH 14.7 % (12.0-16.0); RED CELL COUNT 4.12 10/6/uL (4.0-5.6); WHITE BLOOD CELLS 10.2 10/3/uL (4.5-10.5)
[2016-06-17 03:28] LABS: INTERNATIONAL NORMAL RATI 1.1 UNITS (-); PROTIME (NOT ORD) 13.7 SEC (12.0-14.5)
[2016-06-17 03:30] LABS: PARTIAL THROMBO TIME 102.8 SEC (22.5-37.2)
[2016-06-17 04:03] LABS: EOSINOPHILS 1 %; LYMPHOCYTES 26 %; LYMPHOCYTES ABSOLUTE (CALC) 2.65 10/3/uL (0.67-4.30); MONOCYTES 8 %; MONOCYTES ABSOLUTE (CALC) 0.82 10/3/uL (0.21-1.20); NEUTROPHILS ABSOLUTE (CALC) 6.63 10/3/uL (2.02-8.40); PLATELET ESTIMATE SLT INC (ADEQUATE); RBC MORPHOLOGY NORM (NORMAL); SEGMENTED NEUTROPHIL (0) 65 %; TOTAL NUCLEATED CELLS 100
[2016-06-17 07:24] LABS: BUN (BLOOD UREA NITROGEN) 25 MG/DL (6-23); CALCIUM, SERUM 9.1 MG/DL (8.5-10.4); CHLORIDE, SERUM 107 MMOL/L (96-112); CO2 (CARBON DIOXIDE) 21 MMOL/L (24-34); CREATININE 1.19 MG/DL (0.55-1.02); GFR AFRICAN AMERICAN 57 ML/MIN (>=60); GFR NON AFRICAN AMERICAN 50 ML/MIN (>=60); POTASSIUM, SERUM 4.1 MMOL/L (3.5-5.3); SODIUM, SERUM 142 MMOL/L (135-148)
[2016-06-17 07:26] LABS: GLUCOSE, SERUM 40 MG/DL (60-99)
[2016-06-18 05:22] LABS: INTERNATIONAL NORMAL RATI 1.2 UNITS (-); PROTIME (NOT ORD) 14.6 SEC (12.0-14.5)
[2016-06-18 05:27] LABS: PARTIAL THROMBO TIME 138.6 SEC (22.5-37.2)
[2016-06-19 04:38] LABS: INTERNATIONAL NORMAL RATI 1.2 UNITS (-); PROTIME (NOT ORD) 14.7 SEC (12.0-14.5)
[2016-06-19] MEDS ORDERED: AUG875 PO (15:51)
[2016-06-19] MEDS ORDERED: ELIQUIS 5 MG TAB5 MG PO ×2 (15:58→16:00)
[2016-11-10] MEDS ORDERED: NOVOLOG SC (09:38)
== END 2016-06-19 17:40 | disposition home or self-care (01) | DRG 371 ==
LOC: ER 21:24 → 6NO 06-06 01:39
PROVIDERS: Hospitalist; Internal Medicine; Nurse Practitioner; Nurse Practitioner Family
PROC: 0WBH3ZX Excision of Retroperitoneum, Percutaneous Approach, Diagnostic (ICD-10-PCS; principal; 2016-06-09)
PROC: 0W993ZX Drainage of Right Pleural Cavity, Percutaneous Approach, Diagnostic (ICD-10-PCS; 2016-06-09)
DX: K68.19 Other retroperitoneal abscess (principal); I26.99 Other pulmonary embolism without acute cor pulmonale; J18.9 Pneumonia, unspecified organism; J91.8 Pleural effusion in other conditions classified elsewhere; E11.22 Type 2 diabetes mellitus with diabetic chronic kidney disease; K76.0 Fatty (change of) liver, not elsewhere classified; Z68.41 Body mass index [BMI] 40.0-44.9, adult; N18.3 Chronic kidney disease, stage 3 (moderate); E11.65 Type 2 diabetes mellitus with hyperglycemia; E66.9 Obesity, unspecified; I12.9 Hypertensive chronic kidney disease with stage 1 through stage 4 chronic kidney disease, or unspecified chronic kidney disease; D50.9 Iron deficiency anemia, unspecified; Z79.4 Long term (current) use of insulin; Z90.49 Acquired absence of other specified parts of digestive tract; Z83.3 Family history of diabetes mellitus; Z82.49 Family history of ischemic heart disease and other diseases of the circulatory system; Z82.3 Family history of stroke; Z90.710 Acquired absence of both cervix and uterus
CPT/HCPCS: 32555; 36600; 49180; 71010; 71020; 71250; 71275; 74150; 74177; 77012; 80048; 80053; 80069; 80076; 81001; 82272; 82607; 82728; 82746; 82805; 82945; 82962; 83036; 83540; 83550; 83605; 83615; 83735; 83986; 84145; 84155; 84157; 84165; 84484; 85025; 85045; 85610; 85652; 85730; 86140; 87015; 87040; 87070; 87075; 87102; 87116; 87205; 87449; 87804; 88112; 88305; 88333; 93005; 93970; 94640; 96365; 96366; 96375; 99285; A9270-GY; J0456; J2250; J2543; J3010; Q9967